=== PATIENT | female | born 1995 | race Caucasian/White ===

== ENCOUNTER 2017-07-29 17:18 | Emergency (ER) | payer OTHER ==
--- NOTE | 2017-07-29 18:14 | PD ---
HPI Chief Complaint Leaking fluid Date Seen: Jul 29, 2017 Travel History International Travel<30 Days: No Contact w/Intl Traveler<30Days: No Known Affected Area: No History of Present Illness HPI 22-year-old 3 para 2 with an EDC of August 21, 2017 who comes today thinking her water may be leaking. She notes mild cramping. No bleeding. Good movement. History Obstetric History Obstetric History 1, 32 week vaginal delivery and one 40 week vaginal delivery She received care elsewhere until recently relocating here. She has not currently enrolled with a provider here. Past Surgical History Narrative Surgical Skull surgery as a an Tonsillectomy Family History Family History: Negative Social History Alcohol Use: No Tobacco Use: No Substance Abuse: No Review of Systems Except as stated in HPI: all other systems reviewed are Neg Physical Exam Narrative GENERAL: Well-nourished, well-developed patient. SKIN: Warm and dry. HEAD: Normocephalic and atraumatic. EYES: No scleral icterus. No injection or drainage. ENT: No nasal drainage noted. Mucous membranes pink. Airway patent. NECK: Supple, trachea midline. No JVD. CARDIOVASCULAR: Regular rate and rhythm without murmurs, gallops, or rubs. RESPIRATORY: Breath sounds equal bilaterally. No accessory muscle use. ABDOMEN/GI: Abdomen soft, non-tender, bowel sounds present, no rebound, no guarding Gravid to [-] weeks size Fundal Height: [-] GENITOURINARY: External Genitalia: intact and normal in appearance BUS glands: [Negative-] Cervix: [-] Dilatation: [-Closed] Effacement: [-50] Station: [-2-] Presentation: [-] Membranes: [intact or ruptured] Uterine Contractions: [-Mild irregular] FHT's: Category: [1-] Baseline: [-] Reactive: [Yes-] Variability: [-] Decels: [-] EXTREMITIES: No cyanosis or edema. BACK: Nontender without obvious deformity. No CVA tenderness. NEUROLOGICAL: Awake and alert. Motor and sensory grossly within normal limits. Five out of 5 muscle strength in all muscle groups. Normal speech. MDM Medical Record Reviewed: No Narrative Course / MDM Assessment: 36+ week multipara with no evidence of ruptured membranes Plan: Encouraged enrollment in care Group B strep culture was obtained today. Encouraged to obtain her previous records. Diagnosis Diagnosis: Primary Impression: 36 weeks gestation of Disposition: 01 DISCHARGE HOME Aidan Tapia MD Jul 29, 2017 18:14
== END 2017-07-29 18:52 | disposition home or self-care (01) ==
LOC: HOBED 17:18
DX: Z03.79 Encounter for other suspected maternal and fetal conditions ruled out (principal); Z3A.36 36 weeks gestation of pregnancy
CPT/HCPCS: 84112; 87081; 99284